=== PATIENT | male | born 1940 | race African-American/Black ===

== ENCOUNTER → 2016-09-25 | Outpatient (CLI) | payer OTHER ==
[~2016-09-25] MED LIST: COZAAR100 MG PO; METOPROLOL TART25 MG PO; NORVASC10 MG PO
--- NOTE | ~2016-09-25 | CT2 ---
[facility] A Service of [facility] & [facility] RADIOLOGY TEXT RESULTS PATIENT: LOURDES HERNANDEZ LOCATION: [facility] : 40 UNIT #: [id number] AGE: [address]: Preston Encarnacion MD SEX: M ORDER DR: [id number] [facility] [address] [place], [place] [address] [id number] O MR#: [id number] [facility] #: [id number] NAME: LOURDES HERNANDEZ : 1940 SEX: M STUDY DATE/TIME: 09/25/2016 7:51 UNIT: CCAT ROOM: STUDY DESCRIPTION: CT Abd and Pelv W Cont Attending Physician: Preston Encarnacion M.D. Referring Physician: Preston Encarnacion M.D. Ordering Physician: Preston Encarnacion M.D. Primary Care Physician: Wesly Vences M.D. MEDICAL IMAGING REPORT This report is preliminary unless electronic signature is present INDICATIONS Colon cancer. Observation for metastatic disease. Restaging. Prior deficiency anemia. TECHNIQUE CT of the abdomen and pelvis with 100 mL Isovue-370 IV contrast). Coronal and sagittal reconstructions were obtained. COMPARISON CT abdomen and pelvis dated 06/15/2016. The CT exam was performed with one or more of the following radiation dose reduction techniques: automatic exposure control, adjustment of mA and/or kV according to patient size, and iterative reconstruction. FINDINGS Abdomen: Please refer to separate dictated report for details on the chest. The liver, gallbladder, pancreas, spleen, and adrenal glands are unchanged. There is a large exophytic cyst off the lower pole right kidney. A hypervascular area in the periphery of the inferior right hepatic lobe is unchanged from the prior study and is felt to represent perfusional variant. There has been prior Humberto fundoplication surgery. No enlarged retroperitoneal or mesenteric lymph nodes. There is postsurgical change of partial left colectomy. Patient has some diverticula. The appendix is normal. There is diffuse atherosclerotic disease in the abdominal aorta, however no aneurysm. There is extensive atherosclerotic disease in the iliac vessels. The internal iliac arteries are either occluded or severely stenotic. The prostate is enlarged. No enlarged pelvic or inguinal lymph nodes. [facility] A Service of [facility] & [facility] RADIOLOGY TEXT RESULTS PATIENT: LOURDES HERNANDEZ LOCATION: [facility] : 40 UNIT #: [id number] AGE: [address]: Preston Encarnacion MD SEX: M ORDER DR: No new osseous abnormalities. There is partial fusion across the sacroiliac joints. Degenerative changes are noted in the lumbar spine and pelvis. IMPRESSION 1. No evidence of metastatic disease of the abdomen and pelvis. 2. Perfusional variance within the liver are unchanged from the prior study. No discrete mass is identified. Dictated by... Ronald Bennett M.D. THIS IS AN ELECTRONICALLY VERIFIED REPORT Ronald Bennett M.D. at 09/25/2016 12:26 PM NELDA/boone TD: 09/25/2016 10:30 JOB #: [id number] MEDICAL IMAGING REPORT COPY
--- NOTE | ~2016-09-25 | CT55 ---
[facility] A Service of [facility] & [facility] RADIOLOGY TEXT RESULTS PATIENT: LOURDES HERNANDEZ LOCATION: [facility] : 40 UNIT #: [id number] AGE: [address]: Preston Encarnacion MD SEX: M ORDER DR: [id number] [facility] [address] [place], [place] [address] [id number] O MR#: [id number] [facility] #: [id number] NAME: LOURDES HERNANDEZ : 1940 SEX: M STUDY DATE/TIME: 09/25/2016 0751 UNIT: [facility] ROOM: STUDY DESCRIPTION: CT Chest W Con Attending Physician: Preston Encarnacion M.D. Referring Physician: Preston Encarnacion M.D. Ordering Physician: Preston Encarnacion M.D. Primary Care Physician: Wesly Vences M.D. MEDICAL IMAGING REPORT This report is preliminary unless electronic signature is present EXAM CT chest with contrast, 09/25/2016, 0751 hours. CLINICAL HISTORY 75-year-old man with a history of colon carcinoma and prior chemotherapy. Observation for suspected malignant neoplasm. No current chest complaints. COMPARISON Chest CT, 06/15/2016. TECHNIQUE Helical dynamic postcontrast images were obtained from the thoracic inlet through the adrenal glands. Sagittal and coronal reconstructions were performed. Contrast was Isovue-370 100 mL IV. Total exam DLP 1160 mGy-cm. This CT exam was performed with one or more of the following radiation dose reduction techniques: automatic exposure control, adjustment of mA and/or kV according to patient size, and iterative reconstruction. FINDINGS Images through the thoracic inlet demonstrate no thyroid mass or supraclavicular adenopathy. Images through the chest demonstrate no mediastinal, hilar, or axillary adenopathy. There is no pericardial or pleural fluid. The lungs demonstrate no suspicious pulmonary nodules. There is a calcified nodule in the right upper lobe. 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 Note is again made of left-sided gynecomastia which appears stable. Please see report for the CT abdomen and pelvis for findings below the hemidiaphragms. [facility]. [facility] A Service of [facility] & [facility] RADIOLOGY TEXT RESULTS PATIENT: LOURDES HERNANDEZ LOCATION: [facility] : 40 UNIT #: [id number] AGE: [address]: Preston Encarnacion MD SEX: M ORDER DR: IMPRESSION 1. No evidence of metastatic disease in the chest. 2. Stable mild aneurysmal dilatation of the ascending aorta measuring 4.0 cm. 3. Stable asymmetric or unilateral left-sided gynecomastia. 4. Please see CT abdomen and pelvis report for findings below the hemidiaphragms. Dictated by... Caterina Honeycutt M.D. THIS IS AN ELECTRONICALLY VERIFIED REPORT Caterina Honeycutt M.D. at 09/25/2016 1:34 PM VIPUL/jeffrey TD: 09/25/2016 10:33 JOB #: [id number] MEDICAL IMAGING REPORT COPY
[2016-09-25 07:41] LABS: POC - CREATININE 0.99 mg/dL (0.64-1.27); POC - GFR >60.0 mL/min (>60)
== END | disposition home or self-care (01) ==
LOC: CCAT 07:13
PROVIDERS: Internal Medicine Hematology
DX: C18.9 Malignant neoplasm of colon, unspecified (principal); D50.9 Iron deficiency anemia, unspecified; K90.9 Intestinal malabsorption, unspecified; I71.2 Thoracic aortic aneurysm, without rupture; N62 Hypertrophy of breast
CPT/HCPCS: 71260; 74177; 82565; Q9967

== ENCOUNTER → 2017-01-01 | Outpatient (CLI) | payer OTHER ==
--- NOTE | ~2017-01-01 | CT2 ---
[facility] A Service of [facility] & [facility] RADIOLOGY TEXT RESULTS PATIENT: LOURDES HERNANDEZ LOCATION: [facility] : 40 UNIT #: [id number] AGE: [address]: Preston Encarnacion MD SEX: M ORDER DR: [id number] [facility] [address] [place], [place] [address] [id number] O MR#: [id number] Acc #: [id number] NAME: LOURDES HERNANDEZ : 1940 SEX: M STUDY DATE/TIME: 01/01/2017 8:42 UNIT: [facility] ROOM: STUDY DESCRIPTION: CT Abd and Pelv W Cont Attending Physician: Preston Encarnacion M.D. Referring Physician: Preston Encarnacion M.D. Ordering Physician: Preston Encarnacion M.D. Primary Care Physician: Wesly Vences M.D. MEDICAL IMAGING REPORT This report is preliminary unless electronic signature is present EXAM CT abdomen and pelvis with contrast DATE 01/01/2017 HISTORY Colon cancer with colon resection. Chemotherapy treatment in 2015. No current complaints. Observation for metastatic disease, restaging. COMPARISON CT abdomen and pelvis with contrast 09/25/2016. PROCEDURE 5 mm axial images from the lung bases through the lesser trochanters after intravenous contrast administration. Enteric contrast was not administered. Sagittal and coronal reformatted images were obtained. This CT exam was performed with one or more of the following radiation dose reduction techniques: Automatic exposure control, adjustment of mA and/or kV according to patient size, and iterative reconstruction. FINDINGS ABDOMEN FINDINGS: No suspicious or focal liver lesions are identified. There is a probable tiny cyst in the hepatic dome which is unchanged. A normal variant of colonic interposition anterior to the liver. The gallbladder, spleen, adrenals are normal. Pancreas is moderately atrophic. Multifocal left renal cortical scarring. Incidental note is made of a tiny low-density lesions scattered within each kidney, index lesion on the right measuring 4 mm, index lesion on the left measuring 4 mm, technically too small to characterize but statistically favored to represent cysts. A 1.2 cm cyst is seen in the left upper renal pole. A 9.7 cm cyst is seen within the right lower renal STS. [facility] A Service of [facility] & [facility] RADIOLOGY TEXT RESULTS PATIENT: LOURDES HERNANDEZ LOCATION: [facility] : 40 UNIT #: [id number] AGE: [address]: Preston Encarnacion MD SEX: M ORDER DR: pole. No adenopathy. No free air or free fluid. Diverticular changes are seen within the region of the hepatic flexure of the colon. Presumed surgical changes of the descending colectomy with colocolic anastomosis (series 6 image 37). No evidence of recurrent mass lesion. No evidence of bowel obstruction. Mild ectasia of bilateral common iliac arteries measuring 1.8 cm on the right, 1.7 cm on left with approximately 30% to 40% luminal stenosis of the proximal right common iliac artery, irregular mural plaquing within the left common iliac artery. 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 Surgical changes are seen in the stomach, presumably representing Humberto fundoplication. A perfusional variant demonstrated within the inferior right hepatic lobe on previous studies is somewhat less conspicuous today but is felt, overall, to be a stable finding. PELVIS FINDINGS: Marked prostatic enlargement with the irregular nodular protrusion into the base of the urinary bladder. Rectum is within normal limits. No pathologically enlarged lymph nodes or ascites. Multilevel degenerative disc endplate changes and facet arthropathy. No suspicious osteolytic or osteoblastic abnormalities. IMPRESSION 1. There is no evidence of recurrent or metastatic disease in the abdomen or pelvis in this patient with a history of colon cancer. 2. Presumed surgical changes of the descending colon with colocolic anastomosis. 3. Presumed Hmuberto fundoplication. 4. Marked nodular prostatic enlargement. 5. 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 6. Bilateral renal cysts. 7. Uncomplicated colonic diverticulosis (not included in the body of the report). 8. CT chest performed on the same date has been dictated separately. Dictated by... Latisha Lagunas M.D. THIS IS AN ELECTRONICALLY VERIFIED REPORT Latisha Lagunas M.D. at 01/02/2017 2:01 PM JOSE/maribell TD: 01/01/2017 12:49 [facility]. [facility] A Service of [facility] & [facility] RADIOLOGY TEXT RESULTS PATIENT: LOURDES HERNANDEZ LOCATION: [facility] : 40 UNIT #: [id number] AGE: [address]: Preston Encarnacion MD SEX: M ORDER DR: JOB #: [id number] MEDICAL IMAGING REPORT Page 1 of 1 COPY
--- NOTE | ~2017-01-01 | CT55 ---
[facility] A Service of [facility] & [facility] RADIOLOGY TEXT RESULTS PATIENT: LOURDES HERNANDEZ LOCATION: [facility] : 40 UNIT #: [id number] AGE: [address]: Preston Encarnacion MD SEX: M ORDER DR: [id number] [facility] [address] [place], [place] [address] [id number] O MR#: [id number] [facility] #: [id number] NAME: LOURDES HERNANDEZ : 1940 SEX: M STUDY DATE/TIME: 01/01/2017 8:42 UNIT: CCAT ROOM: STUDY DESCRIPTION: CT Chest W Con Attending Physician: Preston Encarnacion M.D. Referring Physician: Preston Encarnacion M.D. Ordering Physician: Preston Encarnacion M.D. Primary Care Physician: Wesly Vences M.D. MEDICAL IMAGING REPORT This report is preliminary unless electronic signature is present EXAM CT chest with contrast DATE 01/01/2017 HISTORY Colon cancer status post colon resection. Last chemotherapy treatment in 2015. No current complaints. Observation for metastatic disease, restaging. COMPARISON CT chest 09/25/2016, CT chest with contrast 11/01/2015. PROCEDURE 5 mm axial images through the chest after intravenous contrast administration. Sagittal and coronal reformatted images were obtained. This CT exam was performed with one or more of the following radiation dose reduction techniques: automatic exposure control, adjustment of mA and/or kV according to patient size, and iterative reconstruction. FINDINGS Mild emphysematous changes. 4 mm pleural-based nodule in the right lower lobe (series 8 image 28), and an additional 4-5 mm non-calcified nodule in the right lower lobe near the major fissure (series 8 image 32) are each unchanged in comparison to a more remote CT chest study from 03/02/2015, most in keeping with benign findings. No new pulmonary nodules are identified. There is chronic-appearing scarring in the right lower lobe adjacent to the major fissure. No pathologic adenopathy is identified. Mild asymmetric gynecomastia on the left, unchanged. STS. [facility] A Service of [facility] & [facility] RADIOLOGY TEXT RESULTS PATIENT: LOURDES HERNANDEZ LOCATION: [facility] : 40 UNIT #: [id number] AGE: [address]: Preston Encarnacion MD SEX: M ORDER DR: There is aneurysmal dilation of the aortic root at the sinuses of Valsalva on today's examination measuring up to 4.3 cm. There is fusiform aneurysmal dilation of the mid ascending aorta, 4.2 cm and the mid descending aorta, 3.2 cm, without dissection. Small esophageal hiatal hernia. No acute or suspicious osseous lesions are identified. IMPRESSION 1. No convincing evidence of metastatic disease or disease recurrence in the chest in this patient with a history of colon cancer. There are 2 noncalcified nodules in the right lower lobe which appears stable since 03/02/2015, suggesting these probably represent benign findings. Continued attention at surveillance imaging through February 2017 would be recommended to document 2 years of stability and benignity. 2. Mild aneurysmal dilation of the aortic root, ascending and descending thoracic aorta, very slightly increased compared to the 08/09/2015 examination. 3. Suspected mild emphysematous changes. No acute airspace disease. 4. CT abdomen and pelvis performed on this same date has been dictated separately. Dictated by... Latisha Lagunas M.D. THIS IS AN ELECTRONICALLY VERIFIED REPORT Latisha Lagunas M.D. at 01/02/2017 2:00 PM JOSE/jeffrey TD: 01/01/2017 12:51 JOB #: [id number] MEDICAL IMAGING REPORT Page 1 of 1 COPY
[2017-01-01 09:55] LABS: POC - CREATININE 0.95 mg/dL (0.64-1.27); POC - GFR >60.0 mL/min (>60)
== END | disposition home or self-care (01) ==
LOC: CCAT 07:24
PROVIDERS: Internal Medicine Hematology
DX: Z08 Encounter for follow-up examination after completed treatment for malignant neoplasm (principal); D50.9 Iron deficiency anemia, unspecified; K90.9 Intestinal malabsorption, unspecified; R91.8 Other nonspecific abnormal finding of lung field; I71.2 Thoracic aortic aneurysm, without rupture; N40.0 Benign prostatic hyperplasia without lower urinary tract symptoms; N28.1 Cyst of kidney, acquired; K57.30 Diverticulosis of large intestine without perforation or abscess without bleeding; Q25.43 Congenital aneurysm of aorta; Z90.49 Acquired absence of other specified parts of digestive tract; Z85.038 Personal history of other malignant neoplasm of large intestine
CPT/HCPCS: 71260; 74177; 82565; Q9967